=== PATIENT | male | born 1945 | race Caucasian/White ===

== ENCOUNTER → 2018-09-22 20:46 | Outpatient (REF) | payer MEDICARE, SELFPAY | LOC: LAB 20:46 | PROVIDERS: Visit Provider Family Medicine Geriatric Medicine | DX: D48.5 Neoplasm of uncertain behavior of skin (principal) | CPT/HCPCS: 83051 ==

== ENCOUNTER → 2018-10-05 18:13 | Outpatient (REF) | payer MEDICARE, SELFPAY ==
[2018-10-05 18:45] LABS: HEMOLYSIS < 15 (0-50)
[2018-10-05 18:52] LABS: Alanine Aminotransferase 21 IU/L (21-72); Albumin 4.5 g/dL (3.5-5.0); Albumin Globulin Ratio 1.4 (1.0-2.8); Alkaline Phosphatase 83 U/L (38-126); Aspartate Aminotransferase 20 IU/L (17-59); BUN Creatinine Ratio 18.6 (6-22); Bilirubin Total 0.7 mg/dL (0.2-1.3); Blood Urea Nitrogen 13 mg/dL (9-20); Calcium 9.5 mg/dL (8.4-10.2); Carbon Dioxide 28 mmol/L (22-32); Chloride 101 mmol/L (98-107); Cholesterol 178 mg/dL (140-199); Estimated Glomerular Filt Rate > 60.0 mL/min (>60); Globulin 3.3 g/dL (1.7-4.1); Glucose 116 mg/dL (80-110); HDL Cholesterol 55 mg/dL (40-60); LDL Cholesterol Calculated 103 mg/dL (<100); Potassium 3.9 mmol/L (3.4-5.1); Sodium 139 mmol/L (137-145); Total Protein 7.8 g/dL (6.3-8.2); Triglycerides 99 mg/dL (35-150)
[2018-10-05 18:53] LABS: Add Manual Diff / Slide Review NO; Basophils Absolute Auto 200 /uL (0-100); Basophils Percent Auto 1.9 % (0-2); Eosinophils Absolute Auto 200 /uL (0-450); Eosinophils Percent Auto 2.2 % (2-4); Hematocrit 48.5 % (41-53); Hemoglobin 16.6 g/dL (13.5-17.5); Lymphocytes Absolute Auto 2100 /uL (1100-4500); Lymphocytes Percent Auto 18.3 % (25-40); Mean Corpuscular HGB Conc 34.3 % (30-36); Mean Corpuscular Hemoglobin 34.8 PG (26-34); Mean Corpuscular Volume 101.5 fL (80-100); Monocytes Absolute Auto 1000 /uL (0-900); Monocytes Percent Auto 9.1 % (3-14); Neutrophils Absolute Auto 7900 /uL (1500-7000); Neutrophils Percent Auto 68.5 % (50-75); Platelet Count 197 X10^3/uL (150-400); Red Blood Cell Count 4.77 X10^6/uL (4.5-5.9); Red Cell Distribution Width 13.2 % (11.6-14.8); White Blood Cell Count 11.5 X10^3/uL (4.5-11.0)
[2018-10-05 19:31] LABS: Thyroid Stimulating Hormone 2.18 uIU/mL (0.47-4.68)
[2018-10-05 19:35] LABS: Prostate Specific Antigen 2.41 ng/mL (0.10-4.00)
[2018-10-05 19:53] LABS: Vitamin B12 864 pg/mL (239-931)
== END ==
LOC: LAB 18:13
PROVIDERS: Visit Provider Family Medicine Geriatric Medicine
DX: R73.09 Other abnormal glucose (principal); R53.83 Other fatigue; Z12.5 Encounter for screening for malignant neoplasm of prostate; Z13.29 Encounter for screening for other suspected endocrine disorder; Z13.220 Encounter for screening for lipoid disorders
CPT/HCPCS: 36415; 80053; 80061; 82607; 84153; 84443; 85025; G0103

== ENCOUNTER → 2020-03-06 13:58 | Outpatient (CLI) | payer MEDICARE, SELFPAY ==
--- NOTE | 2020-03-06 | DI.US.S_ITS ---
PROCEDURE: US THORACENTESIS INDICATIONS: PLEURAL EFFUSION TECHNIQUE: The indications, alternatives, benefits, risks, and complications of the procedure were explained to the patient. Written informed consent was obtained and placed in the chart. The chest was examined sonographically, and an appropriate site was chosen for thoracentesis. The skin was prepared and draped in the usual sterile fashion, and 1% lidocaine was infiltrated from the skin down through the pleural surface. A 19-gauge catheter-covered needle was then introduced into the pleural space, the catheter was advanced and the needle was withdrawn, and thereafter pleural fluid was aspirated. The catheter was then removed and a dressing was applied. COMPARISON: None. FINDINGS: Access site: Left hemithorax. Smaller right pleural effusion remains, subpulmonic Needle: One-Step centesis catheter with introducer needle. Fluid volume and description: 900 cc, slightly turbid slightly serous fluid Fluid sent for diagnostic testing: At the direction of the ordering healthcare provider. Medications: 1% lidocaine for local anaesthesia. Complications: None; post-procedural chest radiograph is pending to assess for pneumothorax. IMPRESSION: Successful ultrasound-guided thoracentesis. The left pleural effusion was entirely of evaluated successfully. No pneumothorax was present on the left after thoracentesis. Samples provided for laboratory analysis at the direction of the ordering healthcare provider, to include flow cytometry. The samples were immediately provided to the clinical laboratory for appropriate management and refrigeration. Dictated by: Josiah Caicedo M.D. on 03/06/2020 at 16:32 Approved by: Josiah Caicedo M.D. on 03/06/2020 at 16:36
--- NOTE | 2020-03-06 | PATH_ITS ---
Note [facility] Accession Number: [id number] TESTS RESULT FLAG UNITS REF RANGE LAB Clinician Provided Cytology Information No. of containers..01 Other (Miscellaneous) [A] 01 LEFT CHEST DIAGNOSIS: [A] 01 LEFT CHEST POSITIVE FOR MALIGNANT CELLS; FINAL DIAGNOSIS PENDING IMMUNOSTAINS. COMMENT: The specimen exhibits numerous malignant epitheliod cells with abundant eosinophilic cytoplasm and severely atypical nuclei with prominent nucleoli, present singly or in groups or forming glandular like structures. A panel of immunostains will be obtained to determine the primary site with the final diagnosis and results of those stains reported as an addendum. The preliminary results of malignancy is verbally provided by Dr. Valero to Nurse Duran in Dr. Lorenzo's office on at 10:40 a.m. Pathologist ICD10: 01 J90 01 BILATERAL EFFUSION, PRESUMABLY MALIGNANT. 01 Susan Valero MD, Pathologist NPI- [id number] Romaine Haile, Inspector And Clerk ([facility]) 01 70 CC, YELLOW, CLEAR RECEIVED: FRESH IN BLUE CAP CONTAINER. /VD 03/07/2020 0952 [facility] FLAG LEGEND: L-Low Normal,H-High Normal,LL-Alert Low,HH-Alert High <-Panic Low,>-Panic High,A-Abnormal,AA-Critical Abnormal Performed at: 01 =Z [facility] [address] [place] [address] [address], [place] [address] Elijah Tom MD, Performed at: 01 [facility] [place] [address], [place], [place] [id number] MD Elijah Tom MD Phone: [phone]
--- NOTE | 2020-03-06 | DI.RAD.S_ITS ---
PROCEDURE: XR CHEST 1V INDICATIONS: Post thoracentesis. Evaluate for pneumothorax. 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 Comparison CT or recent plain film imaging is not available for review. TECHNIQUE: One view of the chest was acquired. COMPARISON: [facility], , CHEST 2 VIEW, 11/02/2010, 10:18. FINDINGS: Surgical changes and devices: None. Lungs and pleura: Lungs are abnormal, with alveolar infiltration through the middle and lower thirds of the left lung, but with resolution of the moderate left subpulmonic pleural effusion found by ultrasound procedure earlier today, and a vac UA did by thoracentesis. There is a small to moderate subpulmonic right pleural effusion, and mild alveolar infiltration within the right lung inferiorly, likely a combination of atelectasis and pulmonary edema.. No pleural effusions or pneumothorax. Mediastinum: Mediastinal contours appear normal. Heart size is normal. Bones and chest wall: No suspicious bony lesions. Overlying soft tissues appear unremarkable. IMPRESSION: No pneumothorax after evacuation of a moderate subpulmonic left pleural effusion seen by ultrasound earlier today. Small to moderate subpulmonic right effusion remains, and bilaterally there is mild alveolar infiltration in the area did portions of the mid and lower lungs, etiology uncertain. Depending on the clinical status follow-up by CT scanning may become necessary. Dictated by: Josiah Caicedo M.D. on 03/06/2020 at 15:45 Approved by: Josiah Caicedo M.D. on 03/06/2020 at 15:50
[2020-03-06 16:54] LABS: LDH Body Fluid 518 U/L; Total Protein Body Fluid 3.8 g/dL
== END ==
PROVIDERS: PCP Student in an Organized Health Care Education/Training Program; Referring Provider Student in an Organized Health Care Education/Training Program; Visit Provider Student in an Organized Health Care Education/Training Program
DX: C80.1 Malignant (primary) neoplasm, unspecified (principal); J91.0 Malignant pleural effusion
CPT/HCPCS: 32555; 71045; 82042; 83615; 84157; 87070; 87075; 87205